=== PATIENT | male | born 1965 ===

== ENCOUNTER 2021-08-02 10:05 | Emergency (ER) | payer MEDICAID ==
[~2021-08-02] VITALS: Ht 172.7 cm; Wt 81.8 kg
[~2021-08-02 10:05] MED LIST: ONDA8TAB6 PO
[2021-08-02 10:07] VITALS: BP 113/84
[2021-08-02] MEDS ORDERED: NICO-631 TD (10:19)
== END 2021-08-02 11:12 | disposition home or self-care (01) ==
LOC: ER 10:06
DX: F10.129 Alcohol abuse with intoxication, unspecified (principal); R56.9 Unspecified convulsions; R44.3 Hallucinations, unspecified; F17.200 Nicotine dependence, unspecified, uncomplicated; Z72.89 Other problems related to lifestyle; Z79.899 Other long term (current) drug therapy; Y90.9 Presence of alcohol in blood, level not specified
CPT/HCPCS: 99282